=== PATIENT | male | born 1965 | race Caucasian/White ===

== ENCOUNTER 2016-06-07 19:23 | Emergency (ER) | payer OTHER ==
[~2016-06-07] VITALS: Ht 170.2 cm; Wt 96.8 kg
[~2016-06-07 19:23] MED LIST: ACTOS15 MG PO; ASPIR 8181 M1 PO; AUGMENTIN875 MG PO; Ecotrin PO; GLIPIZIDE10 MG PO; GLUCOPHAGE1000 MG PO; LEXAPRO10 MG PO; LIPITOR40 MG PO; ZESTRIL,PRINIVIL5 MG PO; ZOLOFT50 MG PO
[2016-06-07] MEDS ORDERED: LISINOPRIL5 MG PO (19:53)
[2016-06-07] MEDS ORDERED: JANUVIA100 MG PO (19:53)
[2016-06-07] MEDS ORDERED: GABAPENTIN300 MG PO (19:53)
[2016-06-07] MEDS ORDERED: NAPROSYN500 MG PO (21:28)
[2016-06-07] MEDS ORDERED: VALIUM5 MG PO (21:28)
[2016-06-07 22:16] VITALS: BP 136/99
== END 2016-06-07 22:17 | disposition home or self-care (01) ==
LOC: EME 19:23
DX: S70.01XA Contusion of right hip, initial encounter (principal); S50.311A Abrasion of right elbow, initial encounter; W00.0XXA Fall on same level due to ice and snow, initial encounter; E11.9 Type 2 diabetes mellitus without complications
CPT/HCPCS: 73502; 99281; 99284; J1885